=== PATIENT | female | born 1990 | race Caucasian/White ===

== ENCOUNTER 2022-04-28 15:32 | Emergency (ER) | payer MEDICAID ==
[~2022-04-28] VITALS: Ht 162.6 cm; Wt 82.0 kg
[2022-04-28 15:40] VITALS: BP 144/78
[2022-04-28] MEDS ORDERED: NAPROXEN500 MG PO (17:52)
[2022-04-28 18:05] VITALS: BP 144/78
== END 2022-04-28 18:11 | disposition home or self-care (01) ==
LOC: ED 15:32
DX: S80.02XA Contusion of left knee, initial encounter (principal); W01.0XXA Fall on same level from slipping, tripping and stumbling without subsequent striking against object, initial encounter; Y93.E9 Activity, other interior property and clothing maintenance; Y92.009 Unspecified place in unspecified non-institutional (private) residence as the place of occurrence of the external cause